=== PATIENT | female | born 1955 | race American Indian/Alaskan Native ===

== ENCOUNTER 2020-04-09 11:56 | Emergency (ER) | payer MEDICARE ==
[2020-04-09 12:21] VITALS: BP 154/89
--- NOTE | 2020-04-09 13:11 | Emergency Department Report ---
Blank Doc - Documentation Documentation: 64-year-old female that presents with bilateral lower rib pains. Stated his of PNA and symptoms are similar. This initial assessment/diagnostic orders/clinical plan/treatment(s) is/are subject to change based on patient's health status, clinical progression and re- assessment by fellow clinical providers in the ED. Further treatment and workup at subsequent clinical providers discretion. Patient/guardians urged not to elope from the ED as their condition may be serious if not clinically assessed and managed. Initial orders include: 1- Patient sent to [facility] for further evaluation and treatment 2- CXR
--- NOTE | 2020-04-09 13:44 | XRay Report ---
CHEST PA AND LATERAL VIEWS INDICATION: rib pain. COMPARISON: None. FINDINGS: Support devices: None. Heart: Within normal limits. Lungs/Pleura: No acute pulmonary or pleural findings. There is mild bronchiectasis. Scarring is seen in the lateral mid lungs bilaterally. Lungs are mildly hyperexpanded. IMPRESSION: 1. No acute findings. Signer Name: Ernesto Conde MD Signed: 04/09/2020 1:40 PM Workstation Name: [id number]
[2020-04-09] MEDS ORDERED: ONDANSETRON 4 MG/2 ML INJ IV ONE (14:57)
[2020-04-09] MEDS ORDERED: MORPHINE 2 MG/1 ML INJ IV ONE (14:57)
[2020-04-09 16:23] LABS: Basophils # (Auto) 0.1 K/mm3 (0.0-0.1); Basophils % (Auto) 1.6 % (0.0-1.8); Hematocrit 45.2 % (30.3-42.9); Hemoglobin 15.5 gm/dl (10.1-14.3); Lymphocytes # (Auto) 2.2 K/mm3 (1.2-5.4); Lymphocytes % (Auto) 24.1 % (13.4-35.0); Mean Corpuscular HGB Conc 34 % (30-34); Mean Corpuscular Volume 100 fl (79-97); Monocytes # (Auto) 0.6 K/mm3 (0.0-0.8); Monocytes % (Auto) 6.7 % (0.0-7.3); Platelet Count 193 K/mm3 (140-440); Red Blood Count 4.53 M/mm3 (3.65-5.03); Red Cell Distribution Width 15.9 % (13.2-15.2)
[2020-04-09 16:39] LABS: Alanine Aminotransferase 35 units/L (7-56); Albumin 4.5 g/dL (3.9-5); Bilirubin,Direct 0.3 mg/dL (0-0.2); Blood Urea Nitrogen 11 mg/dL (7-17); Calcium 9.8 mg/dL (8.4-10.2); Hemolysis Index 19
[2020-04-09 16:47] LABS: BUN/Creatinine Ratio 16
[2020-04-09 17:22] LABS: Bacteria,Urine 1+ /HPF (Negative); Bilirubin,Urine NEG (Negative); Blood,Urine MOD (Negative); Color,Urine Yellow (Yellow); Mucus,Urine 3+ /HPF; Urobilinogen,Urine < 2.0 mg/dL (<2.0)
--- NOTE | 2020-04-09 18:37 | Cat Scan Report ---
CT ABDOMEN AND PELVIS WITH CONTRAST INDICATION / CLINICAL INFORMATION: abd pain. TECHNIQUE: Axial CT images were obtained through the abdomen and pelvis after IV contrast. All CT scans at this location are performed using CT dose reduction for ALARA by means of automated exposure control. COMPARISON: None available. FINDINGS: LOWER CHEST: Scattered emphysema at the lung bases. HEPATOBILIARY: Mildly enlarged liver with diffuse hypoattenuation suggesting steatosis. Gallbladder i s not visualized possibly representing cholecystectomy. There is diffuse prominence of the common felix e duct measuring up to 1 cm. No intrahepatic biliary ductal dilatation. PANCREAS: No significant abnormality. SPLEEN: No significant abnormality. ADRENALS: 2.3 cm indeterminate left adrenal nodule with punctate calcification. Right adrenal is norm al. GENITOURINARY: Subcentimeter focal hypodensity at the right kidney is too small to definitely charact erize, possible cyst. No solid mass or obstructive uropathy. GASTROINTESTINAL/MESENTERY: Diverticulosis coli without evidence of diverticulitis. There is mild pro minent submucosal fat seen in the cecum. No evidence of bowel obstruction or inflammation. Small amou nt of circumferential air in the cecum appears to be trapped between stool and the bowel wall. No def inite evidence of pneumatosis. No free air or free fluid. RETROPERITONEUM: No significant adenopathy. REPRODUCTIVE ORGANS: No significant abnormality. VASCULAR: Moderate atherosclerotic calcification without acute abnormality. SKELETAL SYSTEM: Degenerative change at L5-S1. No acute fracture or aggressive osseous lesion. ADDITIONAL FINDINGS: None. IMPRESSION: 1. Prominent submucosal fat in the cecum which can be seen in the setting of chronic inflammatory bow el disease. No definite evidence of acute bowel inflammation. No evidence of obstruction. 2. Mildly dilated common bile duct measuring up to 1 cm. No definite obstructing lesion. Consider ERC P or MRCP for further evaluation. 3. Additional findings as above. Signer Name: Paramjit Owens MD Signed: 04/09/2020 6:32 PM Workstation Name: [id number]
--- NOTE | 2020-04-09 18:47 | Emergency Department Report ---
ED Abdominal Pain HPI - General Chief Complaint: Pain General Stated Complaint: RIB PAIN Time Seen by Provider: 04/09/20 13:10 Source: patient Mode of arrival: Ambulatory Limitations: No Limitations - History of Present Illness Initial Comments: 64-year-old female presents to ED with upper abdominal pain/lower chest wall pain since last night. Patient denies any fever, cough, shortness of breath, nausea or vomiting. Patient states pain feels similar to when she had pneumonia before. MD Complaint: abdominal pain -: Last night Location: LUQ, RUQ Radiation: none Migration to: no migration Severity: moderate Severity scale (0 -10): 4 Quality: sharp Consistency: constant Improves With: nothing Worsens With: nothing Associated Symptoms: denies: nausea, vomiting, fever - Related Data Previous Rx's Medication Instructions Recorded Last Taken Type Dicyclomine [Bentyl] 20 mg PO QID PRN #20 tablet 04/09/20 Unknown Rx Allergies Allergy/AdvReac Type Severity Reaction Status Date / Time No Known Allergies Allergy Verified 04/09/20 12:19 ED Review of Systems ROS: Stated complaint: RIB PAIN Other details as noted in HPI Comment: All other systems reviewed and negative Constitutional: denies: chills, fever Respiratory: denies: cough, shortness of breath Cardiovascular: denies: chest pain Gastrointestinal: abdominal pain ED Past Medical Hx - Past Medical History Previous Medical History?: No - Surgical History Past Surgical History?: No Hx Cholecystectomy: Yes - Social History Smoking Status: Never Smoker Substance Use Type: None - Medications Home Medications: Home Medications Medication Instructions Recorded Confirmed Last Taken Type Dicyclomine [Bentyl] 20 mg PO QID PRN #20 tablet 04/09/20 Unknown Rx ED Physical Exam - General Limitations: No Limitations General appearance: alert, in no apparent distress - Head Head exam: Present: atraumatic, normocephalic - Eye Eye exam: Present: normal appearance, EOMI - ENT ENT exam: Present: mucous membranes moist - Neck Neck exam: Present: normal inspection - Respiratory Respiratory exam: Present: normal lung sounds bilaterally. Absent: respiratory distress - Cardiovascular Cardiovascular Exam: Present: regular rate, normal rhythm - GI/Abdominal GI/Abdominal exam: Present: soft, tenderness (LUQ, RUQ). Absent: distended - Extremities Exam Extremities exam: Present: normal inspection - Neurological Exam Neurological exam: Present: alert, oriented X3 - Psychiatric Psychiatric exam: Present: normal affect, normal mood - Skin Skin exam: Present: warm, dry, intact, normal color ED Course Vital Signs 04/09/20 04/09/20 12:20 13:16 Temperature 98.8 F 98.8 F Pulse Rate 96 H Respiratory 18 Rate Blood Pressure 154/89 O2 Sat by Pulse 96 Oximetry ED Medical Decision Making - Lab Data Result diagrams: 04/09/20 16:03 04/09/20 16:03 - Radiology Data Radiology results: report reviewed, image reviewed - Medical Decision Making 64-year-old female presents to ED with complaint of rib pain. However patient points to her right upper quadrant left upper quadrant as the location of her pain. Patient has some tenderness in the area, no significant epigastric te nderness. Chest x-ray is negative. Blood pressure mildly elevated, otherwise normal. Labs are unremarkable. CT scan shows some dilatation of the common bile duct. Patient is status post cholecystectomy. Alk phos is normal, AST mildly elevated. Total bilirubin mildly elevated at 1.4. Patient is afebrile, WBC is normal. Patient does not require admission at this time. Patient advised to follow-up with md allergy immunology on an outpatient basis. Prescriptions given. Return precautions given. - Differential Diagnosis Pneumonia, pancreatitis, bowel obstruction Critical care attestation.: If time is entered above; I have spent that time in minutes in the direct care of this critically ill patient, excluding procedure time. ED Disposition Clinical Impression: Abdominal pain, Common bile duct dilatation Disposition: -01 TO HOME OR SELFCARE Is pt being admited?: No Condition: Stable Instructions: Abdominal Pain (ED) Prescriptions: Dicyclomine [Bentyl] 20 mg PO QID PRN #20 tablet PRN Reason: abdominal pain Referrals: [facility] [Provider Group] - 3-5 Days Time of Disposition: 18:49
== END 2020-04-09 18:54 | disposition home or self-care (01) ==
LOC: ED 11:56
DX: K83.8 Other specified diseases of biliary tract (principal)
CPT/HCPCS: 36415; 71046; 74177; 80048; 80076; 81001; 83690; 85025; 96374; 96375; 99284; J2270; J2405; Q9967